=== PATIENT | female | born 1970 | race African-American/Black ===

== ENCOUNTER 2022-04-22 15:02 | Emergency (ER) | payer MEDICAID, SELFPAY ==
[2022-04-22 15:10] VITALS: BP 111/79; PULSE 89; RESP 16; TEMP 36.7; O2SAT 99
--- NOTE | 2022-04-22 22:01 | ED.GENADUL_ITS ---
Discharge Plan Disposition Patient Disposition: Home Condition: Stable Discharge Details Clinical Impression: Acute lumbar radiculopathy Primary Care Provider: Unknown,Unknown ED Provider: Destinee Aguilar Home Meds and New Rx's Prescriptions: New prednisone 20 mg tablet 20 mg PO DAILY Qty: 18 0RF Rx Instructions: take 2 tabs for 5 days, 1 tab 5 days, 1/2 tab for 5 days Continued torsemide 20 mg tablet 1 tab PO DAILY meloxicam 15 mg tablet 1 tab PO DAILY Label Comments: TAKE 1 TABLET BY MOUTH EVERY DAY omeprazole 20 mg capsule,delayed release(DR/EC) 1 cap PO DAILY Label Comments: TAKE 1 CAPSULE BY MOUTH EVERY DAY spironolactone 50 mg tablet 1 tab PO DAILY Label Comments: TAKE 1 TABLET BY MOUTH EVERY DAY FOR HIGH BLOOD PRESSURE bupropion HCl 150 mg tablet extended release 24 hr 1 tab PO DAILY Label Comments: TAKE 1 TABLET BY MOUTH DAILY duloxetine 60 mg capsule,delayed release(DR/EC) 1 cap PO DAILY Label Comments: TAKE 1 CAPSULE BY MOUTH EVERY DAY pregabalin 150 mg capsule 1 cap PO TID Label Comments: TAKE 1 CAPSULE BY MOUTH THREE TIMES DAILY. norethindrone ac-eth estradiol [Fyavolv] 0.5-2.5 mg-mcg tablet 1 tab PO DAILY Label Comments: TAKE 1 TABLET BY MOUTH EVERY DAY buprenorphine-naloxone [Suboxone] 8-2 mg film 1 film sublingual DAILY Label Comments: DISSOLVE 2 FILMS IN MOUTH DAILY Discharge Instructions Additional Instructions: Please call your doctor for follow-up Take a prednisone taper Continue on your prescribed medications You are on the maximum dose of your Lyrica You may talk to your doctor about other pain alternatives Please be reevaluated immediately should you have changes in bowel or bladder, fever, chills, significant weakness to your extremities, groin numbness, or should he have new or worsening complaints Discharge Data Discharge Date/Time-TO BE ENTERED AT DEPARTURE: 04/22/22 16:34 Medical Decision Making This 52-year-old female presents for acute exacerbation of chronic back pain She is on Suboxone, Lyrica, and has been taking Tylenol for her discomfort, have offered her low-dose prednisone to assist with her pain She appears to have a lumbar radiculopathy without any findings consistent with cauda equina syndrome She is specifically asking for an MRI of her lumbar spine but I see no clear indication on her exam that she needs 1 emergently She is encouraged to follow-up with her doctor when she returns home or return to this facility should she have new or worsening complaints Her neurological exam is essentially benign She discharged home in stable condition with stable vitals HPI General Date/Time Provider Initiated Documentation: 04/22/22 15:45 . HPI Narrative: This 62-year-old female presents with report of bilateral radiation of pain from her lumbar spine which is an acute exacerbation of her chronic pain for which she received an epidural injection approximately a month ago. She states that that she had pain control for 2 weeks and has since resolved. She denies any changes in bowel or bladder. She denies any fever or chills. She denies any history of IV drug abuse. She denies any groin paresthesias. She states the pain is largely exacerbated with ambulation and position change. She denies any urinary symptoms or trauma. She is managed by her physician in [facility] and is here visiting a friend. She has been taking all of her prescribed medications without relief in her pain reportedly. Related Data Home Medications Medication Instructions Recorded Confirmed buprenorphine 8 mg-naloxone 2 mg 1 film sublingual DAILY 04/22/22 04/22/22 sublingual film (Suboxone) bupropion HCl 150 mg 24 hr tablet, 1 tab PO DAILY 04/22/22 04/22/22 extended release duloxetine 60 mg capsule,delayed 1 cap PO DAILY 04/22/22 04/22/22 release meloxicam 15 mg tablet 1 tab PO DAILY 04/22/22 04/22/22 norethindrone acetate 0.5 1 tab PO DAILY 04/22/22 04/22/22 mg-ethinyl estradiol 2.5 mcg tablet (Fyavolv) omeprazole 20 mg capsule,delayed 1 cap PO DAILY 04/22/22 04/22/22 release prednisone 20 mg tablet 20 mg PO DAILY #18 tabs 04/22/22 pregabalin 150 mg capsule 1 cap PO TID 04/22/22 04/22/22 spironolactone 50 mg tablet 1 tab PO DAILY 04/22/22 04/22/22 torsemide 20 mg tablet 1 tab PO DAILY 04/22/22 04/22/22 Previous Rx's Medication Instructions Recorded prednisone 20 mg tablet 20 mg PO DAILY #18 tabs 04/22/22 Allergies Allergy/AdvReac Type Severity Reaction Status Date / Time No Known Allergies Allergy Unverified 04/22/22 15:14 General Stated Complaint: Nk/Back Pain GERSON: 3 Review of Systems All systems reviewed & are unremarkable except as noted in HPI and below PFSH All Active Problems (Updated 04/22/22 @ 16:12 by TORITO Welch) Acute lumbar radiculopathy (Acute) Social History Smoking/Tobacco Use Status: Current-Occasional Tobacco Type: cigarettes Smoking risk assessment performed?: Yes Alcohol Intake: current Alcohol Intake frequency: a few times a month Drug use: Occasionally Substance use type: marijuana Do you feel safe at home: Yes Do you feel safe in your relationship?: Yes Exam Const General: cooperative, comfortable and no acute distress Resp Effort & Inspection: normal respiratory effort Auscultation: clear to auscultation bilaterally Cardio Rate: regular rate Rhythm: regular rhythm Other: distal pulses intact GI Other: No abdominal bruit or pulsatile mass, no CVA tenderness Back/Spine/Pelvis Other: Paraspinal muscle tenderness, no point tenderness Neuro Other: DTRs intact bilateral lower extremities, strength and sensation intact in bilateral lower extremities, Babinski negative Negative straight leg raise bilaterally Extrem General: normal to inspection Right upper extremity: normal to inspection Other: Distal pulses intact Course Vital Signs Vital signs: Vital Signs Temperature 36.7 C 04/22/22 15:10 Pulse 89 04/22/22 15:10 Respiratory Rate 16 04/22/22 15:10 Blood Pressure 111/79 04/22/22 15:10 Pulse Oximetry 99 04/22/22 15:10 Temperature 36.7 C 04/22/22 15:10 Temperature Source Oral 04/22/22 15:10 Pulse 89 04/22/22 15:10 Respiratory Rate 16 04/22/22 15:10 Respiratory Effort 04/22/22 15:13 Blood Pressure 111/79 04/22/22 15:10 Blood Pressure Position Sitting 04/22/22 15:10 Pulse Oximetry 99 04/22/22 15:10 Oxygen Delivery Method Room Air 04/22/22 15:10 Oxygen Flow Rate 0 04/22/22 15:10 Pain Level 10 04/22/22 16:30 Lab/Test Results Lab/Test Results: POC- Test(urine) Negative PAWSS Have you Been Recently Intoxicated or Drunk Within the Last 30 days?: No Have you Ever Experienced Previous Episodes of Alcohol Withdrawal?: No Have you ever Experienced Withdrawal Seizures?: No Have you ever Experienced Delirium Tremens(DT)s?: No Have you ever undergone Alcohol Rehabilitation Treatment (i.e, inpt ot outpatient treatment programs)?: No Have you ever Experienced Blackouts?: No Have you ever Combined Alcohol with other Downers within the last 90 days?: No Have you ever Combined Alcohol with any other Substance of Abuse during the last 90 days?: No Result: 0
== END 2022-04-22 16:34 | disposition home or self-care (01) ==
PROVIDERS: Emergency Provider Physician Assistant
DX: M54.16 Radiculopathy, lumbar region (principal); G89.29 Other chronic pain
CPT/HCPCS: 81025; 99283; 99284